=== PATIENT | male | born 1975 | race Caucasian/White ===

== ENCOUNTER 2020-12-16 21:57 | Emergency (ER) | payer OTHER ==
[~2020-12-16] VITALS: Ht 175.3 cm; Wt 83.9 kg
[2020-12-17] MEDS ORDERED: INTESTINEX680 M2 PO (01:24)
[2020-12-17] MEDS ORDERED: NAPROXEN375 MG PO (01:24)
[2020-12-17] MEDS ORDERED: AMOX1TAB5 PO (01:24)
[2020-12-23] MEDS ORDERED: ACETAMINOPHEN650 M2 (16:01)
== END 2020-12-17 01:52 | disposition home or self-care (01) ==
LOC: ER 21:57
DX: S01.82XA Laceration with foreign body of other part of head, initial encounter (principal); W45.8XXA Other foreign body or object entering through skin, initial encounter; Y93.89 Activity, other specified; Y92.098 Other place in other non-institutional residence as the place of occurrence of the external cause; Y99.8 Other external cause status